=== PATIENT | female | born 1945 | race Caucasian/White ===

== ENCOUNTER → 2017-03-02 | Outpatient (CLI) | payer MEDICARE, OTHER ==
[~2017-03-02] MED LIST: ASP325TEC PO; ATEN25TA PO; CEPH500C PO; CLOP75TA PO; CYCL10TA9 PO; NAPR-243 PO; OMG1KC PO; PRCD5U PO; PRD20T PO; SIMV20TA3 PO
== END ==
LOC: RAD 13:25
PROVIDERS: ATTEND Nurse Practitioner Family
DX: I25.10 Atherosclerotic heart disease of native coronary artery without angina pectoris (principal); I65.23 Occlusion and stenosis of bilateral carotid arteries; E78.4 Other hyperlipidemia; I73.9 Peripheral vascular disease, unspecified
CPT/HCPCS: 93923

== ENCOUNTER → 2017-07-23 | Outpatient (CLI) | payer MEDICARE, OTHER ==
--- NOTE | 2017-07-23 09:00 | Diagnostic Imaging Report ---
PA and lateral views of the chest Indication: Cough and shortness of breath Findings: The lungs are clear. The heart size is at the upper limits of normal. There is no effusion or pneumothorax The mediastinum and kadeem appear unremarkable. Impression: Prominent cardiac size. Dictated by: Dictated on workstation # [id number]
== END ==
LOC: RAD 08:30
DX: R06.02 Shortness of breath (principal); R05 Cough
CPT/HCPCS: 71020

== ENCOUNTER → 2018-09-19 | Outpatient (CLI) | payer MEDICARE, OTHER | LOC: CARD 13:03 | PROVIDERS: ATTEND Nurse Practitioner Family | DX: R06.09 Other forms of dyspnea (principal); I25.10 Atherosclerotic heart disease of native coronary artery without angina pectoris; E78.5 Hyperlipidemia, unspecified; E66.09 Other obesity due to excess calories | CPT/HCPCS: 93306 ==

== ENCOUNTER → 2019-05-08 | Outpatient (CLI) | payer MEDICARE, OTHER ==
[~2019-05-08] MED LIST changes: +CATHETER FLUSH 10 ML SYR IV PRN; +REGADENOSON 0.4 MG/5 ML SYR (LEXISCAN) IV ONE
[2019-05-08 09:23] VITALS: BP 176/100
[2019-05-08 09:25] VITALS: BP 178/105
[2019-05-08 09:26] VITALS: BP 169/94
--- NOTE | 2019-05-09 02:31 | STRESS TEST ---
DATE OF SERVICE: 05/08/2019 RESTING AND POST REGADENOSON TECHNETIUM-99M TETROFOSMIN SPECT CT IMAGING ORDERING PHYSICIAN: Ana Arizmendi APRN PRIMARY CARE PHYSICIAN: Dr. Adame. CLINICAL DIAGNOSES: Coronary artery disease and shortness of breath. Baseline images were carried out after injection of 9.15 mCi technetium-99m Tetrofosmin. This was followed by 0.4 mg regadenoson and 30.7 mCi of technetium-99m Tetrofosmin for stress imaging. The electrocardiogram showed sinus rhythm at baseline and did not change significantly with the regadenoson infusion. The portion noted some shortness of breath following regadenoson infusion, which resolved in a few minutes. Overall, the patient tolerated the procedure well. Review of images at rest and following stress does not indicate any significant perfusion defects consistent with significant myocardial ischemia or infarction. Gated images show normal global left ventricular systolic function and normal regional wall motion. Left ventricular ejection fraction is calculated to be 74%. Left ventricular ejection fraction is calculated to be 74%. TID is absent (1.05). CONCLUSIONS: 1. No evidence of any significant myocardial ischemia or infarction on this study. 2. Normal regional wall motion. 3. Normal global left ventricular systolic function with a calculated ejection fraction of 74%. Job ID: [id number] DocumentID: [id number] Dictated Date: 05/08/2019 21:50:52 Hospital Scientist Date: 05/09/2019 02:30:45 Dictated By: ANGELICA HU MD, MA, FACP, FACC,
== END ==
LOC: CARD 07:07
PROVIDERS: ATTEND Nurse Practitioner Family
DX: I25.10 Atherosclerotic heart disease of native coronary artery without angina pectoris (principal); I65.29 Occlusion and stenosis of unspecified carotid artery; E78.5 Hyperlipidemia, unspecified
CPT/HCPCS: 78452; 93017

== ENCOUNTER → 2020-04-11 | Outpatient (CLI) | payer MEDICARE, OTHER ==
[~2020-04-11] MED LIST changes: -CATHETER FLUSH 10 ML SYR IV PRN; -REGADENOSON 0.4 MG/5 ML SYR (LEXISCAN) IV ONE
--- NOTE | 2020-04-11 10:30 | Diagnostic Imaging Report ---
EXAMINATION: Magnetic resonance imaging of the left knee without intravenous contrast DATE: April 11, 2020. COMPARISON: None. INDICATION: 74-year-old female, left knee pain. TECHNIQUE: Multiplanar, multisequence non contrast enhanced MR imaging was accomplished. FINDINGS: MENISCI: There is an oblique tear involving the body and posterior horn of the medial meniscus. The lateral meniscus is intact. LIGAMENTS AND TENDONS: The anterior and posterior cruciate ligaments are intact. The medial collateral ligament is intact. The iliotibial band, mid third lateral capsular ligament, fibular collateral ligament, biceps femoris tendon and conjoined tendon are intact. The quadriceps tendon and patella ligament are intact. JOINT: There are broad areas of near full-thickness patellar cartilage loss with mild underlying subchondral edema. There is also cartilage loss of the femoral trochlea. There are broad areas of near full-thickness cartilage loss involving the weightbearing portions of the medial femoral condyle and medial tibial plateau with adjacent degenerative related marrow edema. The lateral compartment cartilage appears grossly intact. There is no knee joint effusion, prominent synovitis, or intra-articular body. BONE: There is degenerative related marrow edema as described above. There is no acute fracture, bone contusion, or evidence of osteonecrosis. BURSAE AND SOFT TISSUES: There is no Holt's cyst. There is nonspecific prepatellar subcutaneous edema. There is low level edema in the soleus muscle. There is no fatty muscle atrophy. IMPRESSION: 1. Oblique tear involving the body and posterior horn of the medial meniscus. 2. Intact lateral meniscus. 3. Intact anterior and posterior cruciate ligaments. Additional ligaments and tendons are intact. 4. Severe patellofemoral and medial compartment osteoarthritis. No knee joint effusion, prominent synovitis, or identified intra-articular body. 5. Low level edema in the soleus muscle which may reflect low-grade muscle strain, early denervation related signal changes, and/or myositis. There is no fatty muscle atrophy. The additional intramuscular signal is unremarkable. 6. No acute fracture or evidence of osteonecrosis. Dictated by: Dictated on workstation # [id number]
== END ==
LOC: RAD 08:19
PROVIDERS: ATTEND Nurse Practitioner
DX: S83.242A Other tear of medial meniscus, current injury, left knee, initial encounter (principal); M17.12 Unilateral primary osteoarthritis, left knee
CPT/HCPCS: 73721

== ENCOUNTER 2020-04-29 05:33 | Outpatient (RCR) | payer MEDICARE, OTHER ==
[2020-04-25 14:13] VITALS: BP 158/78
[~2020-04-29] VITALS: Ht 160 cm; Wt 93.2 kg
[~2020-04-29 05:33] MED LIST changes: +ASPI-586 PO; +CLOP75TA69 PO; +MTP25TSR PO; +SIMV20TA26 PO
[2020-05-01] MEDS ORDERED: HYDR-4342 PO (09:50)
== END 2020-04-29 09:50 | disposition home or self-care (01) ==
LOC: PREOP 05:33
PROVIDERS: ATTEND Orthopaedic Surgery
DX: Z01.812 Encounter for preprocedural laboratory examination (principal); M23.204 Derangement of unspecified medial meniscus due to old tear or injury, left knee; Z20.828 Contact with and (suspected) exposure to other viral communicable diseases
CPT/HCPCS: 87081; 87635

== ENCOUNTER 2020-05-01 06:35 | Day surgery (SDC) | payer MEDICARE, OTHER ==
--- NOTE | 2020-04-23 13:57 | HISTORY AND PHYSICAL ---
DATE OF SERVICE: Date of service, surgery, admission will be 05/01/2020 for left knee arthroscopy. This will be for outpatient surgery. HISTORY OF PRESENT ILLNESS: The patient is a 74-year-old female with complaints of progressively worsening left knee pain. The MRI revealed a torn medial meniscus. She also has significant arthritic changes medially and in the patellofemoral joint. The patient does not desire a total knee arthroplasty and elected to proceed with a knee arthroscopy, understanding that this will not cure her arthritic symptoms, but can help with her mechanical symptoms. REVIEW OF SYSTEMS: No chest pain, no shortness of breath, no dysuria. PAST MEDICAL HISTORY: Coronary stents, lupus. PAST SURGICAL HISTORY: Hysterectomy, carpal tunnel, coronary stent placement, heel spur. FAMILY HISTORY: Significant for COPD. PRIMARY CARE PROVIDER: Dr. Adame. MEDICATIONS: Clopidogrel, simvastatin, metoprolol, aspirin, tramadol. ALLERGIES: ZITHROMAX. SOCIAL HISTORY: The patient is a former smoker. Denies alcohol use. PHYSICAL EXAMINATION: GENERAL: The patient is well developed, well-nourished, in no acute distress. HEENT: Normocephalic, atraumatic. Pupils are equal, round and reactive to light. Oropharynx is clear. NECK: Supple, no lymphadenopathy. LUNGS: Clear to auscultation bilaterally. HEART: Regular rate and rhythm. ABDOMEN: Soft, nontender, nondistended. EXTREMITIES: The left knee demonstrates tenderness along the medial joint line. She has large effusion. She has pain medially with Son. There is no varus valgus laxity. Negative anterior and posterior drawer. Range of motion is 0/120. She has patellofemoral crepitus. 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 PLAN: Left knee arthroscopy with chondroplasty. The risks, benefits, options, ramifications and recovery were discussed at length with the patient. She understands and wishes to proceed. Job ID: [id number] DocumentID: [id number] Dictated Date: 04/23/2020 13:48:40 Library Acquisitions Technician Date: 04/23/2020 13:56:17 Dictated By: MARILIN WESTON MD
[2020-05-01] VITALS (10 sets, daily range): BP systolic 112–175; BP diastolic 72–95
[~2020-05-01] VITALS: Ht 160 cm; Wt 93.2 kg
--- OUTSIDE RECORDS SUMMARY | 2020-05-01 06:39 | XMS REPORT ---
Author Author HEROZ film vault supervisor [facility] HEROZ [facility] Address [address] [address] Care Team Providers Care Batter Depositor Name Role Phone ANGELICA HU FACP CCDS Unavailable GIANFRANCO RODERICK Unavailable Unavailable BAICRISTHIAN CARTWRIGHT L BRAKE LINING DRILLER Unavailable Unavailable Migration, Doctor Unavailable Unavailable NANCY DUBOSE APRN Unavailable Unavailable BAICRISTHIAN MACE Unavailable Unavailable REUBEN PARRISH MD Unavailable Unavailable MARGARETTE AUSTIN Unavailable Unavailable Unavailable Unavailable Allergies The data below is from unstructured sourcesNo Known Allergies No Information No Information Medications The data below is from unstructured sourcesNo Known Medications Unknown Medications No Known Medications Unknown Medications Problems Active Problems Problem Normalized Date Last Normalized Normalized Provider Fa cility Classification Problem(s) Recorded Problem Problem Sta tus Duration Coronary Atheroscleroti 04-11-2020 - Chronic Active CRISTHIAN B AIMA [facility] Via atherosclerosi c heart , OSMIN [place] s and other disease of Hospital - heart disease [place] (15 sources.) coronary (25804) artery without angina pectoris Translations: [ CORON ATHEROSCLER NOS TYPE VESSEL, NATIV] Other lower Cough 04-11-2020 - Episodic Active REUBEN CRAWFORD [facility] Via respiratory , MD [place] disease (3 Hospital - sources.) [place] ([address]) Occlusion or Occlusion and 04-11-2020 - Chronic Active HEATHE R BAIMA [facility] Via stenosis of stenosis of , OSMIN [facility] precerebral bilateral Hospital - arteries (8 carotid [place] sources.) arteries (03110) Translations: [ OCCLUSION AND STENOSIS OF UNSPECIFIED CA] Other lower Other forms of 04-11-2020 - Episodic Active HEATHE R BAIMA [facility] Via respiratory dyspnea , OSMIN [place] disease (3 Hospital - sources.) [place] ([address]) Disorders of Other 04-11-2020 - Chronic Active CRISTHIAN REX MA [facility] Via lipid hyperlipidemia , OSMIN [facility] metabolism (12 Translations: Hospital - sources.) [ [place] HYPERLIPIDEMIA (34670) , UNSPECIFIED, HYPERLIPIDEMIA NEC/NOS] Other Other obesity 04-11-2020 - Chronic Active CRISTHIAN BA KIMBERLEY [facility] Via nutritional; due to excess , OSMIN [facility] endocrine; and calories Hospital - metabolic [place] disorders (3 (16274) sources.) Other lower Other Episodic Active CRISTHIAN BAIMA Not Samantha ilable respiratory respiratory (26559) disease (1 abnormalities source.) Peripheral and Peripheral 04-11-2020 - Chronic Active CRISTHIAN BAIMA [facility] Via visceral vascular , OSMIN O[facility]o atherosclerosi disease, Hospital - s (5 sources.) unspecified [place] ([address]) Screening and Personal 04-11-2020 - Episodic Active NANCY ALMARAZ S , [facility] Via history of history of [facility] nicotine Hospital - and substance dependence [place] abuse codes (4 (38977) sources.) Other lower Shortness of 04-11-2020 - Episodic Active REUBEN CHAY OELING [facility] Via respiratory breath , MD [place] disease (3 Hospital - sources.) [place] ([address]) Past or Other Problems Problem Normalized Date Last Normalized Normalized Provider Fa cility Classification Problem(s) Recorded Problem Problem Sta tus Duration Superficial Contusion of Episodic Completed GOOD LISA , DO No t Available injury; hip (71226) contusion (1 source.) Coronary Coronary Chronic Completed ANGELICA HU , Not Availa ble atherosclerosi atherosclerosi [facility] (92540) s and other s of [place] heart disease coronary (2 sources.) artery Translations: [ PERCUTANEOUS TRANSLUM CORON ANGIOPLASTY ] External cause Fall resulting no information no information L ERIC LISA , DO Not Available codes: Fall (1 in striking (98102) source.) against other object Other injuries Hip and thigh Episodic Completed GOOD LISA , DO Not Available and conditions injury (64062) due to external causes (1 source.) External cause Home accidents no information no information L ERICAmanda GONZALEZ , DO Not Available codes: Place (20674) of occurrence (1 source.) External cause Other external no information no information L ERICAmanda GONZALEZ , DO Not Available codes: cause status (42899) Unspecified (1 source.) Procedures The data below is from unstructured sources Procedure Coding System Code Date SINGLE IMMUNIZATION ADMIN CPT-4 04134 Aug 16, 2015 FLUZONE TRIV HIGH DOSE (65 & UP)-SANOFI PASTEUR-2014 CPT-4 01650 Aug 16, 2015 No Known procedures Immunizations The data below is from unstructured sources No Known Immunizations Results The data below is from unstructured sourcesNo Known Results No Results No Results Vital Signs The data below is from unstructured sources Vital Response Date/Time Temperature (Fahrenheit) 99.3 degree s F (97.6 - 99.5) 01/31/2016 8:44pm Temperature (Calculated Celsius) 37. 61520 degrees C (36.4 - 37.5) 01/31/2016 8:44pm Temperature Source Temporal 01/31/2016 8:44pm Pulse Rate (adult) 139 bpm (60 - 90) 01/31/2016 8:44pm Respiratory Rate 18 bpm (12 - 24) 01/31/2016 8:44pm O2 Sat by Pulse Oximetry 96 % (88 - 100) 01/31/2016 8:44pm Blood Pressure 154/89 mm Hg 01/31/2016 8:44pm Blood Pressure Mean 110 mm Hg 01/31/2016 8:44pm Pain Pain Intensity 0 2015 8:44pm Height (Feet) 5 feet 11/2015 8:44pm Height (Inches) 3 inches 01/31/2016 8:44pm Height (Calculated Centimeters) 160. 394998 cm 01/31/2016 8:44pm Weight (Pounds) 185 pounds 01/31/2016 8:44pm Weight (Calculated Kilograms) 83.914 589 kilograms 01/31/2016 8:44pm Height 5 ft 3 in Weight 185 lb Body Mass Index 32.8 kg/m^2 Interventions No Information Plan of Treatment The data below is from unstructured sources Discharge Date 01/31/16 10:43pm Disposition 01 HOME, SELF-CARE Condition at Discharge Improved Instructions/Education Provided [facility] Judge emelina Obstructive Pulmonary Disease (ED) Prescriptions See Medication Section Referrals ANGELICA HU MD FACP FACC CC DS - Primary Care Physician REUBEN PARRISH MD - Primary Care Physician Additional Instructions/Education 1. Continue the Keflex antibiotics 2. Return to ER for any concerns or wors ening difficulty breathing 3. Follow up with Dr Parrish next week 4. All discharge instructions reviewed with patient and/or family. Voiced understanding. Goals No Information Social History No Information Functional Status The data below is from unstructured sourcesNo functional status results. Mental Status No Information Encounters Encounter Normalized Encounter Encounter Diagnosis Care Provi caio Organization Date Type 01-31-2016 Emergency department no information NANCY MARTINEZ (no [facility] - patient visit phone) [facility] 01-31-2016 (no phone) 06-26-2012 Emergency department no information no name no organization name - patient visit 06-26-2012 04-11-2020 Patient encounter no information MARGARETTE SOLORIO (no [facility] procedure phone) [facility] (no phone) 05-08-2019 Patient encounter no information no name no or ganization name procedure 05-08-2019 Patient encounter no information CRISTHIAN L BAIMA AR HOME CARE MANAGER RN [facility] Via [facility] procedure (no phone) [facility] (no phone) 09-19-2018 Patient encounter no information no name no or ganization name procedure 09-19-2018 Patient encounter no information CRISTHIAN L BAIMA AR HOME CARE MANAGER RN [facility] procedure (no phone) [facility] (no phone) 07-23-2017 Patient encounter no information no name no or ganization name procedure 07-23-2017 Patient encounter no information REUBEN Borja [facility] procedure (no phone) [facility] (no phone) 03-02-2017 Patient encounter no information no name no or ganization name procedure 03-02-2017 Patient encounter no information CRISTHIAN L BAIMA AR HOME CARE MANAGER RN [facility] procedure (no phone) [facility] (no phone) 09-03-2014 Patient encounter no information no name no or ganization name procedure 08-18-2012 Patient encounter no information no name no or ganization name procedure Medical Equipment No Information Payers No Information Advance Directives Directive Response Recor ded Date/Time Advance Directives No 8:44pm Health Care Power of Accounting Policy Consultant No 01/31/16 8:44pm Organ Donor No 01/31/16 8:44pm Resuscitation Status Full Code 01/31/16 8:44pm Discharge Instructions No hospital discharge instructions. Summary Purpose eClinicalWorks Submission Additional Source Comments This clinical document has been generated using [employer]Jam software that has been certified by the Office of the National Coordinator for Health Information Technology (ONC 15.99.04.3023.Diam.31.00.0.779464) and the National Committee for Boilermaker Apprentice (NCQA, as an eMeasure certified technology). FOR RECORDS PERTAINING TO PATIENTS WHO ARE OR HAVE BEEN ENROLLED IN A CHEMICAL D EPENDENCY/SUBSTANCE ABUSE PROGRAM, SOME INFORMATION MAY BE OMITTED. This clinica l summary was aggregated from multiple sources. Caution should be exercised in using it in the provision of clinical care. This summary normalizes information from multiple sources, and as a consequence, information in this document may ma terially change the coding, format and clinical context of patient data. In lena tion, data may be omitted in some cases. CLINICAL DECISIONS SHOULD BE BASED ON T HE PRIMARY CLINICAL RECORDS. [facility]. provides no warranty or guara ntee of the accuracy or completeness of information in this document.The followi information is based on time limited clinical information
--- OUTSIDE RECORDS SUMMARY | 2020-05-01 06:39 | XMS REPORT ---
Author Lulu Castillo Organization eClinicalWorks Address Unknown Phone Unavailable Care Team Providers Care Sponge Buffer Name Role Phone RODERICK MEDEL CP Unavailable Allergies No Known Allergies Problems Problem Type Condition Code Onset Dates Condition Statu s Assessment Encounter for immunization Z23 A ctive Medications No Known Medications Procedures Procedure Coding System Code Date SINGLE IMMUNIZATION ADMIN CPT-4 89762 Aug FLUZONE TRIV HIGH DOSE (65 & UP)-SANOFI PASTEUR-2014 CPT-4 92262 Aug 16, 2015 Results No Known Results Immunizations Vaccine Administration Date FLUZONE TRIV HIGH DOSE (65 & UP)-SANOFI PASTEUR-[address] 2014 Summary Purpose eClinicalWorks Submission
--- OUTSIDE RECORDS SUMMARY | 2020-05-01 06:39 | XMS REPORT | Continuity of Care Document ---
Author Organization Unknown Address Unknown Phone Unavailable Allergies Active Description Code Type Severity Reaction Onset Reported/Identified Relationship to Patient Clinical Status Yes azithromycin [id number] Drug Allergy Unknown N/A 02/03/2011 Medications There is no data. 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 03/01/2017 CRISTHIAN GORDON WOOL HAT HYDRAULICKER Ot I25.10 ATHSCL HEART DISEASE OF [place] CORONARY 03/01/2017 CRISTHIAN GORDON L WOOL HAT HYDRAULICKER Ot I25.10 ATHSCL HEART DISEASE OF [place] CORONARY 03/02/2017 Ot 397.0 TRIC USPID VALVE DISEASE 03/02/2017 Ot 414.00 COR ON ATHEROSCLER NOS TYPE VESSEL, NATIV 03/02/2017 Ot 424.0 MITR AL VALVE DISORDER 03/02/2017 Ot 786.09 RES PIRATORY ABNORM NEC 03/02/2017 Ot 414.01 COR ONARY ATHEROSCLEROSIS OF [place] CORON 03/02/2017 Ot V45.82 PER CUTANEOUS TRANSLUM CORON ANGIOPLASTY 03/02/2017 CRISTHIAN GORDON L WOOL HAT HYDRAULICKER Ot 272.4 HYPERLIPIDEMIA NEC/NOS 03/02/2017 CRISTHIAN GORDON L WOOL HAT HYDRAULICKER Ot 414.00 CORON ATHEROSCLER NOS TYPE VESSEL, NATIV 03/02/2017 CRISTHIAN GORDON WOOL HAT HYDRAULICKER Ot 786.09 RESPIRATORY ABNORM NEC 03/02/2017 BAIMA, CRISTHIAN L WOOL HAT HYDRAULICKER Ot I25.10 ATHSCL HEART DISEASE OF [place] CORONARY 03/03/2017 BAIMA, CRISTHIAN L WOOL HAT HYDRAULICKER Ot E78.4 OTHER HYPERLIPIDEMIA 03/03/2017 BAIMA, CRISTHIAN L WOOL HAT HYDRAULICKER Ot I25.10 ATHSCL HEART DISEASE OF [place] CORONARY 03/03/2017 BAIMA, CRISTHIAN L WOOL HAT HYDRAULICKER Ot I65.23 OCCLUSION AND STENOSIS OF BILATERAL [place] 03/03/2017 BAIMA, CRISTHIAN L WOOL HAT HYDRAULICKER Ot I73.9 PERIPHERAL VASCULAR DISEASE, UNSPECIFIED 03/24/2017 BAIMA, CRISTHIAN L WOOL HAT HYDRAULICKER Ot E78.4 OTHER HYPERLIPIDEMIA 03/24/2017 BAIMA, CRISTHIAN L WOOL HAT HYDRAULICKER Ot I25.10 ATHSCL HEART DISEASE OF [place] CORONARY 03/24/2017 BAIMA, CRISTHIAN L WOOL HAT HYDRAULICKER Ot I65.23 OCCLUSION AND STENOSIS OF BILATERAL [place] 03/24/2017 BAIMA, CRISTHIAN L WOOL HAT HYDRAULICKER Ot I73.9 PERIPHERAL VASCULAR DISEASE, UNSPECIFIED 08/13/2017 FRANCOIS KIM, REUBEN Borja Ot R0 5 COUGH 08/13/2017 FRANCOIS KIM, REUBEN Borja Ot R06.02 SHORTNESS OF BREATH 09/19/2018 BAIMA, CRISTHIAN L WOOL HAT HYDRAULICKER Ot 272.4 HYPERLIPIDEMIA NEC/NOS 09/19/2018 BAIMA, CRISTHIAN L WOOL HAT HYDRAULICKER Ot 414.00 CORON ATHEROSCLER NOS TYPE VESSEL, NATIV 09/19/2018 BAIMA, CRISTHIAN L WOOL HAT HYDRAULICKER Ot 786.09 RESPIRATORY ABNORM NEC 09/19/2018 BAIMA, CRISTHIAN L WOOL HAT HYDRAULICKER Ot E78.4 OTHER HYPERLIPIDEMIA 09/19/2018 BAIMA, CRISTHIAN L WOOL HAT HYDRAULICKER Ot I25.10 ATHSCL HEART DISEASE OF [place] CORONARY 09/19/2018 BAIMA, CRISTHIAN L WOOL HAT HYDRAULICKER Ot I65.23 OCCLUSION AND STENOSIS OF BILATERAL [place] 09/19/2018 BAIMA, CRISTHIAN L WOOL HAT HYDRAULICKER Ot I73.9 PERIPHERAL VASCULAR DISEASE, UNSPECIFIED 09/19/2018 FRANCOIS KIM, REUBEN Borja Ot R0 5 COUGH 09/19/2018 FRANCOIS KIM, REUBEN Borja Ot R06.02 SHORTNESS OF BREATH 10/13/2018 BAIMA, CRISTHIAN L WOOL HAT HYDRAULICKER Ot E66.09 OTHER OBESITY DUE TO EXCESS CALORIES 10/13/2018 BAIMA, CRISTHIAN L WOOL HAT HYDRAULICKER Ot E78.5 HYPERLIPIDEMIA, UNSPECIFIED 10/13/2018 BAIMA, CRISTHIAN L WOOL HAT HYDRAULICKER Ot I25.10 ATHSCL HEART DISEASE OF [place] CORONARY 10/13/2018 BAIMA, CRISTHIAN L WOOL HAT HYDRAULICKER Ot R06.09 OTHER FORMS OF DYSPNEA 05/30/2019 BAIMA, CRISTHIAN L WOOL HAT HYDRAULICKER Ot E78.5 HYPERLIPIDEMIA, UNSPECIFIED 05/30/2019 BAIMA, CRISTHIAN L WOOL HAT HYDRAULICKER Ot I25.10 ATHSCL HEART DISEASE OF [place] CORONARY 05/30/2019 BAIMA, CRISTHIAN L WOOL HAT HYDRAULICKER Ot I65.29 OCCLUSION AND STENOSIS OF UNSPECIFIED CA 04/11/2020 BAIMA, CRISTHIAN L WOOL HAT HYDRAULICKER Ot E78.4 OTHER HYPERLIPIDEMIA 04/11/2020 BAIMA, CRISTHIAN L WOOL HAT HYDRAULICKER Ot I25.10 ATHSCL HEART DISEASE OF [place] CORONARY 04/11/2020 BAIMA, CRISTHIAN L WOOL HAT HYDRAULICKER Ot I65.23 OCCLUSION AND STENOSIS OF BILATERAL [place] 04/11/2020 BAIMA, CRISTHIAN L WOOL HAT HYDRAULICKER Ot I73.9 PERIPHERAL VASCULAR DISEASE, UNSPECIFIED 04/11/2020 FRANCOIS KIM, REUBEN D Ot R0 5 COUGH 04/11/2020 FRANCOIS KIM, REUBEN D Ot R06.02 SHORTNESS OF BREATH 04/11/2020 BAIMA, CRISTHIAN L WOOL HAT HYDRAULICKER Ot E66.09 OTHER OBESITY DUE TO EXCESS CALORIES 04/11/2020 BAIMA, CRISTHIAN L WOOL HAT HYDRAULICKER Ot E78.5 HYPERLIPIDEMIA, UNSPECIFIED 04/11/2020 BAIMA, CRISTHIAN L WOOL HAT HYDRAULICKER Ot I25.10 ATHSCL HEART DISEASE OF [place] CORONARY 04/11/2020 BAIMA, CRISTHIAN L WOOL HAT HYDRAULICKER Ot R06.09 OTHER FORMS OF DYSPNEA 04/11/2020 BAIMA, CRISTHIAN L WOOL HAT HYDRAULICKER Ot E78.5 HYPERLIPIDEMIA, UNSPECIFIED 04/11/2020 BAIMA, CRISTHIAN L WOOL HAT HYDRAULICKER Ot I25.10 ATHSCL HEART DISEASE OF [place] CORONARY 04/11/2020 BAIMA, CRISTHIAN L WOOL HAT HYDRAULICKER Ot I65.29 OCCLUSION AND STENOSIS OF UNSPECIFIED CA 04/18/2020 MARGARETTE BARCENAS WOOL HAT HYDRAULICKER Ot M17. 12 UNILATERAL PRIMARY OSTEOARTHRITIS, LEFT 04/18/2020 MARGARETTE BARCENAS WOOL HAT HYDRAULICKER Ot S83.242A OTH TEAR OF MEDIAL MENISCUS, CURRENT INJ Procedures There is no data. Results Test Result Range Methicillin resistant Staphylococcus aur eus (MRSA) screening culture - 04/25/20 13:37 Methicillin resistant Staphylococcus aureus (MRSA) scr eening culture NEG NRG Coronavirus SARS-CoV-2 SO 2018 0 08:10 Coronavirus Ab [Units/volume] in Serum Negative Negative Encounters ACCT No. Visit Date/Time Discharge Status Pt. Type Provider Facility Loc./Unit Complaint [id number] 04/29/2020 05:33:00 020 09:50:00 DIS Outpatient MARILIN WESTON MD [facility] PREOP LEFT MEDIAL MENISCUS T EAR [id number] 04/11/2020 08:19:00 020 23:59:59 CLS Outpatient MARGARETTE BARCENAS WOOL HAT HYDRAULICKER [facility] RAD TEAR OF MEDIAL MENISCUS LEFT KNEE [id number] 05/08/2019 07:07:00 019 23:59:59 CLS Outpatient BAIMA, CRISTHIAN L WOOL HAT HYDRAULICKER [facility] CARD CAD [id number] 09/19/2018 13:03:00 018 23:59:59 CLS Outpatient BAIMA, CRISTHIAN L WOOL HAT HYDRAULICKER [facility] CARD DYSPNEA ON EXER TION [id number] 07/23/2017 08:30:00 017 23:59:59 CLS Outpatient FRANCOIS KIM, REUBEN Borja [facility] RAD R06.02 [id number] 03/02/2017 13:25:00 017 23:59:59 CLS Outpatient BAIMA, CRISTHIAN L WOOL HAT HYDRAULICKER [facility] RAD I25.10 [id number] 09/03/2014 08:37:00 014 23:59:59 CLS Outpatient BAIMA, CRISTHIAN L WOOL HAT HYDRAULICKER [facility] CARD CAD,DYSPNEA [id number] 05/01/2020 08:45:00 P EN Preadmit ENRICO KIM, MARILIN Blair [facility] LEFT MEDIAL MENISCUS TEAR [id number] 01/31/2016 20:34:00 Document Registration [id number] 08/18/2012 06:53:00 Document Registration [id number] 06/26/2012 10:58:00 Document Registration [id number] 02/03/2012 09:13:00 Document Registration
[2020-05-01] MEDS: LACTATED RINGERS 1,000 ML IV PRN ×2 (06:53→08:40)
[2020-05-01] MEDS ORDERED: ceFAZolin INJECTION 1,000 MG in WATER (STERILE) FOR INJECTION 10 ML IV ONE (07:00)
[2020-05-01] MEDS ORDERED: CATHETER FLUSH 10 ML SYR IV PRN (07:15)
[2020-05-01] MEDS ORDERED: LIDOCAINE PF 2% 5 ML (XYLOCAINE) VIAL ONE (07:22)
[2020-05-01] MEDS ORDERED: SEVOFLURANE (ULTANE) 15 ML INHAL SOLN ONE (07:22)
[2020-05-01] MEDS ORDERED: fentaNYL INJECTION 100 MCG/2 ML AMP ONE (07:22)
[2020-05-01] MEDS ORDERED: proPOfol 200 MG/20 ML (DIPRIVAN) VIAL IV ONE (07:22)
[2020-05-01] MEDS ORDERED: ONDANSETRON 4 MG/2 ML (SDV) Z0FRAN ONE (07:22)
[2020-05-01] MEDS ORDERED: HYDROcodone/APAP 7.5 MG/325 MG (LORTAB, LORCET PLUS) TABLET PO PRN (07:30)
--- NOTE | 2020-05-01 07:37 | Progress Note-Pre Operative ---
Pre-Operative Progress Note H&P Reviewed The H&P was reviewed, patient examined and no changes noted. 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
[2020-05-01] MEDS ORDERED: BUPIVACAINE 0.25% 30 ML (SENSORCAINE) VIAL ONE (07:38)
[2020-05-01] MEDS ORDERED: morphine PF (DURAMORPH) 10 MG/10 ML AMP ONE (07:38)
--- NOTE | 2020-05-01 07:38 | Progress Note-Post Operative ---
Post-Operative Progess Note Surgeon (s)/Senior Interactive Producer (s) Surgeon MARILIN WESTON MD Senior Interactive Producer: Rachid Mckee Pre-Operative Diagnosis lef tknee medial meniscus tear and chondromalacia Post-Operative Diagnosis lef tknee medial meniscus tear and chondromalacia of the medial femoral condyle and patella Procedure & Operative Findings Date of Procedure 05/01/20 Procedure Performed/Findings left knee arthroscopic partial medial meniscectomy and chondroplasty of the medial femoral condyle and the patella Anesthesia Type GETA Estimated Blood Loss Estimated blood loss (mL): minimal Specimens/Packing Specimens Removed none Packing: none MARILIN WESTON MD May 01, 2020 07:38
[2020-05-01] MEDS ORDERED: ATROPINE 1.2 MG/3 ML (0.4 MG/ML) SYR ONE (08:39)
[2020-05-01] MEDS ORDERED: ONDANSETRON 4 MG/2 ML (SDV) Z0FRAN IVP PRN (09:15)
[2020-05-01] MEDS ORDERED: morphine INJ 10 MG/ML 1ML (SYR OR VIAL) IVP ONE (09:15)
[2020-05-01] MEDS ORDERED: HYDROmorphone 2 MG/ML VIAL (DILAUDID) IV ONE (09:15)
[2020-05-01] MEDS ORDERED: HYDR-3817 PO (09:50)
--- NOTE | 2020-05-01 10:48 | Physical Therapy Ortho Eval ---
PT Orthopedic Evaluation Type of Surgery Knee Scope (left) Prior Level of Function Current Living Status: Alone (son checks on her as needed) Locomotion (Upon Admit): Independent Established Durable Medical Eq: Front Wheeled Walker Subjective Subjective Agrees to PT. Reports she has a walker at home. Reports her sister will assist as needed and her son will be available as well. Entry Into Home: Stairs With Railing Steps Into Home: 5 Steps Inside Home: 0 Motor Control Motor Control: Motor Control WNL ROM ROM: WFL left knee flexion is "stiff" but functional with transfers and gait. Strength Strength: WFL left quad is weak, requires assist with SLR but able to safely WB and ambulate. Transfer Transfers (B, C, W/C) (FIM): 4 (post eval, pt was mod indep) Gait Gait Assistive Device: FWW Right Lower Extremity: Right Weight Bearing Status RLE: Full Weight Bearing Left Lower Extremity: Left Weight Bearing Status LLE: Weight Bearing/Tolerated Gait (FIM): 4 (post eval, pt was mod indep with gait with FWW) Distance (FIM): 3=150 ft Summary/Comments Safe gait on level surfaces with FWW; pt not putting full weight on LE at this time but verbalizes understanding of WBAT. Stair training with skilled cues for seqeuning. Pt able to perform correctly and demonstrates understanding of sequencing. Safe gait without LOB noted. Treatment Rendered Treatment: Therapeutic Exercises, Gait Train, Step Train Exercise Instruction: Quad Sets, Straight Leg Raise, Heel Slides Reviewed HEP and provided pt with pictures. Pt demonstrated correct performance. Assessment/Goals Goal Time Frame: 1 Visit Understands HEP: Yes Safe Ambulation: Yes Plan Treatment Plan: Discharge PT/Family Agrees to Plan: Yes Time Time In: 1005 Time Out: 1030 Total Billed Treatment Time: 25 Billed Treatment Time visit EVM 25 VINOD HINDS PT May 01, 2020 10:48
--- NOTE | 2020-05-01 13:40 | Anesthesia-General Post-Op ---
General Patient Condition Mental Status/LOC: Same as Preop Cardiovascular: Satisfactory Nausea/Vomiting: Absent Respiratory: Satisfactory Pain: Controlled Complications: Absent Post Op Complications Complications None Follow Up Care/Instructions Patient Instructions None needed. Anesthesia/Patient Condition Patient Condition Patient was seen after the procedure and she was doing well, no complaints, stable vital signs, no apparent adverse anesthesia problems. ELIGIO VALE DO May 01, 2020 13:40
--- NOTE | 2020-05-01 15:27 | OPERATIVE REPORT ---
DATE OF SERVICE: 05/01/2020 PREOPERATIVE DIAGNOSES: 1. Left knee medial meniscus tear. 2. Left knee chondromalacia of the medial femoral condyle. 3. Left knee chondromalacia of the patella. POSTOPERATIVE DIAGNOSES: 1. Left knee medial meniscus tear. 2. Left knee chondromalacia of the medial femoral condyle. 3. Left knee chondromalacia of the patella. PROCEDURES: 1. Left knee arthroscopic partial medial meniscectomy. 2. Left knee arthroscopic chondroplasty medial femoral condyle. 3. Left knee arthroscopic chondroplasty of the patella. SURGEON: Matthieu Weston MD PACKING CLERK: Rachid Mckee, who assisted throughout the procedure and closed the incisions. ANESTHESIA: General endotracheal by Dr. Lentz. TOURNIQUET TIME: ESTIMATED BLOOD LOSS: Minimal. DRAINS: None. COMPLICATIONS: None. POSTOPERATIVE PLAN: Routine arthroscopy protocol. The patient was transferred to the recovery room awake and in stable condition. STATEMENT OF MEDICAL NECESSITY: The patient is a 74-year-old female with complaints of left medial knee pain, catching, locking and swelling. She was tender along her medial joint line. She had pain medially with Son's. Radiographs revealed significant medial joint space and patellofemoral joint space narrowing. The patient was counseled that she had significant arthritis in that this arthroscopy may not provide much relief of her symptoms. The patient did not desire total knee arthroplasty and elected to proceed with a knee arthroscopy to try to provide temporary relief of her symptoms. Examination under anesthesia revealed range of motion of 0/0/130 with negative Kendra, negative anterior and posterior drawer. No varus valgus laxity, negative pivot shift. Arthroscopic findings of patella demonstrated grade II chondral flap centrally in a 10 x 10 area. Trochlea demonstrated grade II chondral softening with no unstable chondral flaps. The medial and lateral gutters were clear. The ACL and PCL were intact. The medial compartment demonstrated grade III chondral flap posteriorly in a 10 x 10 area with grade IV chondral loss posterior to this in a 10 x 10 area. The tibia demonstrated grade IV chondral loss at the posterior horn rim with surrounding grade III chondral loss with no unstable chondral flaps. The posterior horn and body of the medial meniscus demonstrated a complex tear involving approximately one-half of the posterior horn and body. The lateral compartment demonstrated grade II chondral softening of the tibial plateau with no unstable chondral flaps. DESCRIPTION OF PROCEDURE: After risks and benefits of procedure were discussed and questions were answered, an informed consent was signed and placed on chart. The operative site was confirmed and prepped initialed by the surgeon. The patient was then transferred to the operating room. After adequate levels of general endotracheal anesthetic were obtained, a timeout was called, confirming the operative site. Left lower extremity was prepped and draped in the usual sterile fashion. The knee joint was injected with 60 mL of fluid and standard inferolateral portals placed with the arthroscope under direct visualization, inferior medial portal was created. The menisci and cruciates carefully probed with the above findings noted. The unstable chondral flaps on the patella were debrided with shaver back to a stable edge. Scope was redirected into the medial compartment where the unstable chondral flaps in the medial femoral condyle were debrided with shaver back to a stable edge. Posterior horn of the medial meniscus was debrided with a biter and a shaver back to a stable edge. The knee was copiously irrigated. The port sites were closed with 4-0 nylon in subcuticular fashion. Knee was injected with Duramorph. Portal sites were infiltrated with plain Marcaine. A soft dressing was applied and the patient was transferred to the recovery room awake and in stable condition. Job ID: [id number] DocumentID: [id number] Dictated Date: 05/01/2020 08:58:01 Supervisor Type Photography Date: 05/01/2020 15:27:10 Dictated By: MATTHIEU WESTON MD
== END 2020-05-01 11:05 | disposition home or self-care (01) ==
LOC: SDC 06:35
PROVIDERS: ATTEND Orthopaedic Surgery
DX: M23.222 Derangement of posterior horn of medial meniscus due to old tear or injury, left knee (principal); M22.42 Chondromalacia patellae, left knee; M32.9 Systemic lupus erythematosus, unspecified; M06.9 Rheumatoid arthritis, unspecified; E78.5 Hyperlipidemia, unspecified; I10 Essential (primary) hypertension; Z95.5 Presence of coronary angioplasty implant and graft; Z79.82 Long term (current) use of aspirin; Z79.899 Other long term (current) drug therapy; Z87.891 Personal history of nicotine dependence; E66.9 Obesity, unspecified; Z68.36 Body mass index [BMI] 36.0-36.9, adult

== ENCOUNTER → 2021-04-28 | Outpatient (CLI) | payer MEDICARE, OTHER ==
[~2021-04-28] MED LIST changes: +HYDR-3817 PO
== END ==
LOC: CARD 14:00
PROVIDERS: ATTEND Nurse Practitioner Family
DX: R06.09 Other forms of dyspnea (principal)
CPT/HCPCS: 93306

== ENCOUNTER 2022-01-29 05:44 | Outpatient (CLI) | payer MEDICARE, OTHER ==
[~2022-01-29] VITALS: Ht 160 cm; Wt 92.5 kg
[2022-01-29] MEDS ORDERED: HYDR25TA4 PO (13:36)
[2022-01-29] MEDS ORDERED: METF-397 PO (13:36)
[2022-01-29] MEDS ORDERED: METO50TA7 PO (13:36)
[2022-01-29] MEDS ORDERED: ASPI-999 PO (13:36)
== END 2022-01-30 07:01 | disposition home or self-care (01) ==
LOC: PREOP 05:44
PROVIDERS: ATTEND Internal Medicine
DX: Z01.818 Encounter for other preprocedural examination (principal)

== ENCOUNTER 2022-02-06 09:24 | Day surgery (SDC) | payer MEDICARE, OTHER ==
--- NOTE | 2022-01-29 09:56 | HISTORY AND PHYSICAL ---
DATE OF SERVICE: COLONOSCOPY HISTORY AND PHYSICAL HISTORY OF PRESENT ILLNESS: The patient is a 76-year-old white female referred for diagnostic colonoscopy. She reports no previous history of colonoscopy, but was recently noted to be anemic. She reports that was mild anemia, did not know what the number was, but then had positive stool for occult blood. She has not noted melena or bright red blood per rectum. She denies any significant problems with reflux, heartburn, dysphagia or change in weight. She is over 10 years out from 2 cardiac stents for which she has continued to take aspirin and Plavix for 81 mg and 75 mg respectively each day. She is not aware of any family history for colon cancer or GI tract malignancy. PAST MEDICAL HISTORY: Other than coronary artery disease with stent placement over 10 years ago is pertinent for hyperlipidemia, hypertension and insulin resistance. She sees Dr. Boswell as her icer hand. 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 She has had GUILLERMINA for what sounds like severe cervical dysplasia a number of years ago per Dr. Goodrich as well as carpal tunnel replacement. She reports that ovaries were left. This occurred post-. This was noted around the time of . FAMILY HISTORY: As noted in the HPI. REVIEW OF SYSTEMS: CONSTITUTIONAL: Denies night sweats, chills, fever or change in weight. CARDIOVASCULAR: Denies chest discomfort, orthopnea, PND, pedal edema or dyspnea on exertion. PULMONARY: Denies cough, wheezing or shortness of breath. GASTROINTESTINAL: As noted in the HPI. PHYSICAL EXAMINATION: GENERAL: Reveals pleasant white female appeared to be in no acute distress. Evidence for mild pallor. VITAL SIGNS: Heart rate was 70 and regular. Blood pressure 120/82. HEENT: Sclerae were nonicteric. CHEST: Clear to auscultation. CARDIOVASCULAR: Reveals a regular rate and rhythm. Soft 1 to 2/6 systolic ejection murmur heard best at the left lower sternal border without evidence for pulsus, parvus or tardus. No S3 or S4 noted. ABDOMEN: Soft, supple without mass, organomegaly or tenderness. No bruits appreciated. Bowel sounds positive. EXTREMITIES: Reveal no cyanosis, clubbing or edema. ASSESSMENT AND PLAN: The patient is being set up for diagnostic colonoscopy and will undergo EGD to follow if there are no potential bleeding sites noted on colonoscopy considering the patient is taking aspirin and Plavix increasing risk for peptic ulcer disease. The patient will hold aspirin and Plavix one week prior to the procedure. Written instructions were given. Prep instructions with Suprep kit were given and questions were answered. I thank you for the referral of this pleasant lady. Job ID: [id number] DocumentID: [id number] Dictated Date: 01/26/2022 16:21:05 Correspondence Section Supervisor Date: 01/26/2022 18:29:39 Dictated By: DOV PARADA MD
[~2022-02-06] VITALS: Ht 160 cm; Wt 93.0 kg
[~2022-02-06 09:24] MED LIST changes: +ASPI-999 PO; +HYDR25TA4 PO; +METF-397 PO; +METO50TA7 PO
[2022-02-06] MEDS ORDERED: LACTATED RINGERS 1,000 ML IV ONE (09:29)
[2022-02-06] MEDS ORDERED: LACTATED RINGERS 1,000 ML IV STA (09:31)
[2022-02-06 09:40] VITALS: BP 157/70
--- NOTE | 2022-02-06 09:42 | Pre-Op Note & Conscious Sedat ---
Pre-Operative Progress Note H&P Reviewed The H&P was reviewed, patient examined and no changes noted. Date H&P Reviewed: Feb 06, 2022 Time H&P Reviewed: 09:41 Conscious Sedation Pre-Proced ASA Score 3 For ASA 3 and 4: Consider anesthesia and medical clearance. Also, for patients with a history of failed moderate sedation consider anesthesia. Airway Lungs Heart ASA score ASA 1: a normal healthy patient ASA 2: a patient with a mild systemic disease (mid diabetes, controlled hypertension, obesity ASA 3: a patient with a severe systemic disease that limits activity (angina, COPD, prior Myocardial infarction) ASA 4: a patient with an incapacitating disease that is a constant threat to life (CHF, renal failure) ASA 5: a moribund patient not expected to survive 24 hrs. (ruptured aneurysm) ASA 6: a declared brain- patient whose organs are being harvested. For emergent operations, add the letter E after the classification Mallampati Classification Grade 2 Sedation Plan Analgesia, Amnesia, Plan communicated to team members, Discussed options with patient/fam, Discussed risks with patient/fam The patient is an appropriate candidate to undergo the planned procedure, sedation, and anesthesia. The patient immediately re-assessed prior to indication. DOV PARADA MD Feb 06, 2022 09:42
[2022-02-06] MEDS ORDERED: LIDOCAINE JELLY 2% 6 ML SYRINGE MM PRN (09:45)
[2022-02-06] MEDS ORDERED: PROPOFOL INJECTION 50 ML IV ONE (10:34)
[2022-02-06 11:05] VITALS: BP 152/81
[2022-02-06 11:10] VITALS: BP 129/60
[2022-02-06 11:14] VITALS: BP 129/60
[2022-02-06 11:35] VITALS: BP 150/92
--- NOTE | 2022-02-06 12:11 | Anesthesia-General Post-Op ---
MAC Patient Condition Mental Status/LOC: Same as Preop Cardiovascular: Satisfactory Nausea/Vomiting: Absent Respiratory: Satisfactory Pain: Controlled Complications: Absent Post Op Complications Complications None Follow Up Care/Instructions Patient Instructions None needed. Anesthesiology Discharge Order Discharge Order Patient is doing well, no complaints, stable vital signs, no apparent adverse anesthesia problems. No complications reported per nursing. DAKOTA ORTIZ CRNA Feb 06, 2022 12:11
--- NOTE | 2022-02-06 15:27 | OPERATIVE REPORT ---
DATE OF SERVICE: COLONOSCOPY SUMMARY INDICATION FOR THE PROCEDURE: Diagnostic colonoscopy, occult positive blood in the stool and iron deficiency anemia. DESCRIPTION OF PROCEDURE: The patient was placed in the left lateral decubitus position. Prior to undergoing colonoscopy, digital rectal evaluation was performed. Anal sphincter tone was normal and the perianal reflexes intact. The colonoscope was inserted in the rectum and under direct visualization advanced to cecum. The cecum was identified by identification of ileocecal valve and cecal strap. Careful inspection was made as the colonoscope withdrawn. Quality of prep was good. FINDINGS: No evidence for internal or external hemorrhoids and the rectum was unremarkable. Mild to moderate diverticular disease noted in the sigmoid and descending colon was present without evidence for diverticulitis. The splenic flexure, transverse colon, hepatic flexure, ascending colon, and cecum were unremarkable. ASSESSMENT: Mild to moderate diverticular disease was noted in the sigmoid and descending colon without evidence for diverticulitis. This is otherwise normal colonoscopy to the cecum. The patient was advised to continue aspirin therapy and discussed only resuming dual platelet therapy if this is what is recommended by her cost accounting clerk considering that she is quite a few years out from her last cardiac stent and in light of occult positive blood in the stool. We will have her return to discuss setting up future EGD. Job ID: [id number] DocumentID: [id number] Dictated Date: 02/06/2022 11:05:13 Psych Rn Date: 02/06/2022 15:26:26 Dictated By: DOV PARADA MD
== END 2022-02-06 11:48 | disposition home or self-care (01) ==
LOC: ENDO 09:24
PROVIDERS: ATTEND Internal Medicine
DX: K57.30 Diverticulosis of large intestine without perforation or abscess without bleeding (principal); D50.9 Iron deficiency anemia, unspecified; Z79.82 Long term (current) use of aspirin; Z95.5 Presence of coronary angioplasty implant and graft; Z85.828 Personal history of other malignant neoplasm of skin; Z79.02 Long term (current) use of antithrombotics/antiplatelets; E66.9 Obesity, unspecified; Z68.36 Body mass index [BMI] 36.0-36.9, adult

== ENCOUNTER 2022-02-12 07:21 | Outpatient (CLI) | payer MEDICARE, OTHER ==
[~2022-02-12] VITALS: Ht 160 cm; Wt 93.0 kg
== END 2022-02-12 09:12 | disposition home or self-care (01) ==
LOC: PREOP 07:21
PROVIDERS: ATTEND Internal Medicine
DX: Z01.818 Encounter for other preprocedural examination (principal)

== ENCOUNTER 2022-02-20 07:03 | Day surgery (SDC) | payer MEDICARE, OTHER ==
--- NOTE | 2022-02-11 16:27 | HISTORY AND PHYSICAL ---
DATE OF SERVICE: EGD HISTORY AND PHYSICAL HISTORY OF PRESENT ILLNESS: The patient is a 76-year-old white female, who had recent colonoscopy for iron deficiency anemia and occult positive blood in the stool. There were no potential bleeding sites identified. She had mild to moderate diverticular disease noted in the sigmoid and descending colon without evidence for diverticulitis or evidence for neoplasia. She continues to deny melena or bright red blood per rectum. She sometimes would note some dark flecks in the stool. There have been no bowel habit changes and no reported change in weight. She is on aspirin and Plavix, which increased her risk for silent peptic ulcer disease and intermittent bleeding and for this reason, she is being set up for EGD evaluation considering recent negative colonoscopy. PAST MEDICAL HISTORY: She is not aware of any past history for peptic ulcer disease or GI bleeding. She has been on aspirin and Plavix for the past 10 years, which was her last stent placement and sees Dr. Hernandez. PHYSICAL EXAMINATION: GENERAL: Reveals a white female, mild pallor. HEENT:: Otherwise unremarkable. Sclerae nonicteric. VITAL SIGNS: Weight 205 pounds, stable. Blood pressure 140/86. CHEST: Clear to auscultation. CARDIOVASCULAR: Reveals regular rate and rhythm. Soft 1 to 2/6 systolic ejection murmur heard best at right intercostal space without evidence for pulsus, parvus or tardus. No S3 or S4 noted. ABDOMEN: Soft, supple without mass, organomegaly or tenderness. EXTREMITIES: Reveal no cyanosis, clubbing or edema. ASSESSMENT: The patient is being set up next Wednesday for EGD evaluation for iron deficiency anemia and occult positive blood in the stool. She will hold aspirin in the interim, continuing her other medications unchanged. Job ID: [id number] DocumentID: [id number] Dictated Date: 02/11/2022 16:01:26 Net Architect Date: 02/11/2022 16:26:54 Dictated By: DOV PARADA MD
[~2022-02-20] VITALS: Ht 160 cm; Wt 93.0 kg
[2022-02-20] MEDS ORDERED: PROPOFOL INJECTION 50 ML IV ONE (07:21)
--- NOTE | 2022-02-20 07:38 | Pre-Op Note & Conscious Sedat ---
Pre-Operative Progress Note H&P Reviewed The H&P was reviewed, patient examined and no changes noted. Date H&P Reviewed: Feb 20, 2022 Time H&P Reviewed: 07:15 Conscious Sedation Pre-Proced ASA Score 3 For ASA 3 and 4: Consider anesthesia and medical clearance. Also, for patients with a history of failed moderate sedation consider anesthesia. Airway Lungs Heart ASA score ASA 1: a normal healthy patient ASA 2: a patient with a mild systemic disease (mid diabetes, controlled hypertension, obesity ASA 3: a patient with a severe systemic disease that limits activity (angina, COPD, prior Myocardial infarction) ASA 4: a patient with an incapacitating disease that is a constant threat to life (CHF, renal failure) ASA 5: a moribund patient not expected to survive 24 hrs. (ruptured aneurysm) ASA 6: a declared brain- patient whose organs are being harvested. For emergent operations, add the letter E after the classification Mallampati Classification Grade 2 Sedation Plan Analgesia, Amnesia, Plan communicated to team members, Discussed options with patient/fam, Discussed risks with patient/fam The patient is an appropriate candidate to undergo the planned procedure, sedation, and anesthesia. The patient immediately re-assessed prior to indication. DOV PARADA MD Feb 20, 2022 07:38
[2022-02-20] MEDS ORDERED: LACTATED RINGERS 1,000 ML IV STA (07:43)
[2022-02-20] MEDS ORDERED: HURRICAINE EXT TUBE (BENZOCAINE) XX PRN (07:45)
[2022-02-20 07:56] VITALS: BP 110/57
[2022-02-20 07:59] VITALS: BP 158/106
[2022-02-20 08:00] VITALS: BP 113/57
[2022-02-20 08:27] VITALS: BP 149/77
--- NOTE | 2022-02-20 13:10 | OPERATIVE REPORT ---
DATE OF SERVICE: EGD SUMMARY INDICATION FOR THE PROCEDURE: Occult positive blood in the stool, iron deficiency anemia. DESCRIPTION OF PROCEDURE: The patient was placed in the left lateral decubitus position. The endoscope was inserted in the oral cavity and under direct visualization, the esophagus was intubated. The endoscope was passed down the esophagus through stomach and into the second portion of the duodenum. Careful inspection was made as the endoscope was withdrawn. FINDINGS: The oral cavity, posterior pharynx, epiglottis, true and false vocal folds and arytenoid aperture were unremarkable to gross inspection. Proximal, mid and distal esophagus were unremarkable as well. There was a small sliding hiatal hernia present without evidence for erosive esophagitis. The Z-line is distinct and no evidence to suggest Mejia's change was noted. The cardia and fundus of the stomach were unremarkable. There were some linear areas of antral erythema without evidence for erosion, ulceration or evidence for any blood in the upper GI tract. A biopsy was obtained and submitted for histopathology and Helicobacter evaluation. The pylorus, pyloric channel, duodenal bulb, and second portion of duodenum were unremarkable. ASSESSMENT: No potential bleeding sites were identified on today's procedure. The patient does have some mild antral gastritis. Biopsies are pending for histopathology and Helicobacter evaluation. A small hiatal hernia was present without evidence for underlying esophagitis. Job ID: [id number] DocumentID: [id number] Dictated Date: 02/20/2022 07:53:57 Admittance Attendant Date: 02/20/2022 13:09:26 Dictated By: DOV PARADA MD
--- NOTE | 2022-02-20 13:56 | Anesthesia-General Post-Op ---
MAC Patient Condition Mental Status/LOC: Same as Preop Cardiovascular: Satisfactory Nausea/Vomiting: Absent Respiratory: Satisfactory Pain: Controlled Complications: Absent Post Op Complications Complications None Follow Up Care/Instructions Patient Instructions None needed. Anesthesiology Discharge Order Discharge Order Patient is doing well, no complaints, stable vital signs, no apparent adverse anesthesia problems. No complications reported per nursing. JEREMIAH ABBASI CRNA Feb 20, 2022 13:56
== END 2022-02-20 08:44 | disposition home or self-care (01) ==
LOC: ENDO 07:03
PROVIDERS: ATTEND Internal Medicine
DX: K29.60 Other gastritis without bleeding (principal); K31.89 Other diseases of stomach and duodenum; D50.9 Iron deficiency anemia, unspecified; K44.9 Diaphragmatic hernia without obstruction or gangrene; R19.5 Other fecal abnormalities; K57.30 Diverticulosis of large intestine without perforation or abscess without bleeding; Z79.01 Long term (current) use of anticoagulants; Z79.82 Long term (current) use of aspirin
CPT/HCPCS: 88305

== ENCOUNTER 2022-07-07 10:46 | Emergency (ER) | payer MEDICARE, OTHER ==
[~2022-07-07] VITALS: Ht 160 cm; Wt 90.7 kg
[2022-07-07] MEDS ORDERED: TETANUS,DIPTH,PERTUSS P/F (BOOSTRIX) 0.5 ML VIAL IM ONE (11:45)
--- NOTE | 2022-07-07 11:46 | ED Fall/Injury ---
General Chief Complaint: Trauma-Non Activation Stated Complaint: HEAD INJURY, BRUISING Nursing Triage Note: PT AMB TO RM 2. PT STATED THAT SHE MISSED THE BOTTOM STEP AND FELL AND HIT THE RIGHT SIDE OF HER FACE. Source: patient Exam Limitations: no limitations History of Present Illness Date Seen by Provider: Jul 07, 2022 Time Seen by Provider: 11:32 Initial Comments Here with report of fall last night when she missed the bottom step. She states she fell and hit her face on the sidewall and then fell to her knees and twisted her left ankle. Complains of right facial pain, upper neck pain, right head pain, bilateral knee pain and left ankle pain. Denies loss of consciousness. Does report being on blood thinners. Her daughter saw her this morning and was concerned about head injury and wanted her to be seen. Patient agreed. Denies nausea or vomiting. Denies significant pain currently. She was able to walk and with some difficulty to the ED. Occurred: yesterday Severity: mild, moderate Injuries/Pain Location: head, face, neck, lower extremity Context: tripped Loss of Consciousness: no loss of consciousness Associated Symptoms (Fall): No Confusion; Headache, Neck Pain; No Shortness of Air, No Trouble Walking Allergies and Home Medications Allergies Coded Allergies: azithromycin (Unverified Allergy, Unknown, 05/01/20) Patient Home Medication List Home Medication List Reviewed: Yes Aspirin (Aspirin) 81 Mg Tab.chew, 81 MG PO DAILY, (Reported) Entered as Reported by: AMILCAR SAGASTUME on 01/29/22 1336 Clopidogrel Bisulfate (Plavix) 75 Mg Tablet, 75 MG PO DAILY, (Reported) Entered as Reported by: DEEPTI HALEY on 04/25/20 1433 Hydrochlorothiazide (Hydrochlorothiazide) 25 Mg Tablet, 25 MG PO DAILY, (Reported) Entered as Reported by: AMILCAR SAGASTUME on 01/29/22 1336 Metformin HCl (Metformin HCl) 500 Mg Tablet, 500 MG PO DAILY, (Reported) Entered as Reported by: AMILCAR SAGASTUME on 01/29/22 1336 Metoprolol Succinate (Metoprolol Succinate) 50 Mg Tab.er.24h, 50 MG PO HS, (Reported) Entered as Reported by: AMILCAR SAGASTUME on 01/29/22 1336 Simvastatin (Simvastatin) 20 Mg Tablet, 20 MG PO HS, (Reported) Entered as Reported by: DEEPTI HALEY on 04/25/20 1433 Review of Systems Review of Systems Constitutional: No chills, No fever Eyes: No Symptoms Reported Ears, Nose, Mouth, Throat: denies nose discharge, denies epistaxis Respiratory: No cough, No short of breath Musculoskeletal: joint pain, neck pain Skin: change in color, lesions (Abrasion right knee, right hand) Psychiatric/Neurological: Headache All Other Systems Reviewed Negative Unless Noted: Yes Past Lwukhkf-Ozdpza-Gxcrxf Hx Patient Social History Tobacco Use?: No Substance use?: No Alcohol Use?: No Immunizations Up To Date Influenza Vaccine Up-to-Date: No; Not Current First/Initial COVID19 Vaccinat: DECEMBER 2020 Second COVID19 Vaccination Simone: JANUARY 2021 Third COVID19 Vaccination Date: SEPTEMBER 2021 Seasonal Allergies Seasonal Allergies: No Past Medical History Surgeries: Yes ( CARPEL TUNNEL, heel spurs) Coronary Stent, Hysterectomy Respiratory: No Cardiac: Yes (STENTS) High Cholesterol, Hypertension Neurological: No Reproductive Disorders: No [employer]OR History: Hysterectomy, Menopausal Genitourinary: No Gastrointestinal: No Musculoskeletal: Yes (left knee tear) Arthritis Endocrine: No HEENT: Yes (cataract removed) Cancer: No Psychosocial: No Integumentary: No Blood Disorders: No Adverse Reaction/Blood Tranf: No Family Medical History Reviewed Nursing Family Hx No Pertinent Family Hx Physical Exam Vital Signs Vital Signs - First Documented Capillary Refill : Less Than 3 Seconds Height, Weight, BMI Height: 5'3" Weight: 185lbs. oz. 83.651182ak; 35.00 BMI Method:Stated General Appearance: WD/WN, no apparent distress HEENT: PERRL/EOMI, TMs normal, pharynx normal, other (Contusion right cheek and right lateral forehead) Neck: full range of motion, supple, tender midline (Upper C-spine) Cardiovascular: regular rate, rhythm, no murmur Respiratory: lungs clear, normal breath sounds Gastrointestinal: non tender, soft Back: normal inspection, no CVA tenderness, no vertebral tenderness Neurologic/Psychiatric: alert, oriented x 3 Skin: warm/dry, ecchymosis (Right cheek and forehead), other (Small skin tear right radial side wrist dorsal aspect, small abrasion to the right knee) Amara Coma Score Best Eye Response: (4) Open Spontaneously Best Verbal Response: (5) Oriented Best Motor Response: (6) Obeys Commands Progress/Results/Core Measures Results/Orders My Orders Orders - ROSLYN THOMPSON MD Ankle, Left, 3 Views (07/07/22 11:40) Knee, Bilateral, W/[place] 4v. (07/07/22 11:40) Ct Head/Face/Cervical Wo (07/07/22 11:40) Dipht,Pertuss(Acell),Tet Adult (Boostrix (07/07/22 11:45) Medications Given in ED Current Medications Medications Dose Ordered Sig/Mich Route Start Time Stop Time Status Last Admin Dose Admin Diphtheria/ Tetanus/Acell Pertussis 0.5 ml ONCE ONCE IM 07/07/22 11:45 07/07/22 11:46 DC 07/07/22 11:50 0.5 ML Vital Signs/I&O 07/07/22 07/07/22 10:54 10:54 Pulse 88 88 Resp 16 16 B/P (MAP) 157/77 (103) 157/77 (103) Pulse Ox 97 97 O2 Delivery Room Air Room Air Blood Pressure Mean: 103 Progress Progress Note : Progress Note Seen and evaluated. Given patient's history of anticoagulant use, we will go ahead and get CT of the head and have added CT of the neck and face due to injury pattern. We will get x-ray of both knees and the left ankle also due to pain. Tetanus updated due to abrasions. Patient declined pain medicine. Monitor patient. 1250: No acute finding on CT or x-ray as noted on results below. This was discussed with the patient. Discharged home with return precautions. Patient verbalized understanding of instructions and agreement with plan. Diagnostic Imaging Diagonstic Imaging: Xray Plain Films/CT/US/NM/MRI: ankle Comments [facility]. [place], [place] NAME: RONNELL HAY [facility] REC#: [id number] PT STATUS: REG ER : 1945 PHYSICIAN: ROSLYN THOMPSON MD ADMIT DATE: 07/07/22/ER Draft Date of Exam:07/07/22 ANKLE, LEFT, 3 VIEWS INDICATION: Left ankle pain. AP, oblique, and lateral views of the left ankle are obtained. FINDINGS: No fracture or acute bony abnormality is seen. Joint spaces are unremarkable. There is plantar calcaneal spurring. IMPRESSION: Negative left ankle. Dictated on workstation # [id number] Dict: 07/07/22 1228 Trans: 07/07/22 1231 [id number] Interpreted by: ALEX WALLACE MD Electronically signed by: Martha Imaging: Xray Plain Films/CT/US/NM/MRI: facial bones, c-spine, head Comments [facility], [place] NAME: RONNELL HAY [facility] REC#: [id number] PT STATUS: REG ER : 1945 PHYSICIAN: ROSLYN THOMPSON MD ADMIT DATE: 07/07/22/ER Draft Date of Exam:07/07/22 CT HEAD/FACE/CERVICAL WO INDICATION: Trauma, head and neck and facial injuries. TECHNIQUE: Multiple contiguous axial images were obtained through the head, neck, and facial bones without the use of intravenous contrast. Sagittal and coronal reformations through the cervical spine and facial bones were also performed. Auto Exposure Controls were utilized during the CT exam to meet ALARA standards for radiation dose reduction. There is no previous CT for comparison. CT head findings: There were no extra-axial fluid collections. No intracranial hemorrhage. No intracranial mass or mass effect. No midline shift. The ventricles are normal in size and position. There were no focal parenchymal abnormalities in the brain. Calvarial windows are unremarkable. CT cervical spine findings: There was no evidence of cervical spine fracture. There is loss of lordosis which is probably positional. There is mild anterolisthesis of C3 on C4 which is likely degenerative. There is severe disc space narrowing at C5-C6 and C6-C7 with osteophyte formation. There is diffuse facet degenerative change. CT maxillofacial findings: There was no evidence of facial bone fracture. Orbital contents appear unremarkable. The visualized paranasal sinuses show no fluid levels. IMPRESSION: CT head was unremarkable. CT cervical spine shows extensive degenerative change with no acute appearing abnormality. CT maxillofacial demonstrates no facial fracture or sinus fluid levels. Dictated on workstation # [id number] Dict: 07/07/22 1213 Trans: 07/07/22 1222 [id number] Interpreted by: ALEX WALLACE MD Electronically signed by: Diagonstic Imaging: Xray Plain Films/CT/US/NM/MRI: knee Comments [facility]. [place], [place] NAME: RONNELL HAY [facility] REC#: [id number] PT STATUS: REG ER : 1945 PHYSICIAN: ROSLYN THOMPSON MD ADMIT DATE: 07/07/22/ER Draft Date of Exam:07/07/22 KNEE, BILATERAL, W/SUNRISE 4V. INDICATION: Bilateral knee pain post fall. TECHNIQUE: AP, oblique, lateral, and sunrise views of both knees are obtained. FINDINGS: No fracture or acute bony abnormality is seen. There is tricompartmental osteoarthritic change of both knees, most prominent in the medial compartment. There is no overt joint effusion. IMPRESSION: Tricompartmental osteoarthritic change of both knees with no acute abnormality. Dictated on workstation # [id number] Dict: 07/07/22 1229 Trans: 07/07/22 1235 AS [id number] Interpreted by: ALEX WALLACE MD Electronically signed by: Departure Impression Primary Impression: Head injury Qualified Codes: S09.90XA - Unspecified injury of head, initial encounter Additional Impressions: Facial contusion Qualified Codes: S00.83XA - Contusion of other part of head, initial encounter Neck strain Qualified Codes: S16.1XXA - Strain of muscle, fascia and tendon at neck level, initial encounter Bilateral knee pain Qualified Codes: M25.561 - Pain in right knee; M25.562 - Pain in left knee Left ankle sprain Qualified Codes: S93.402A - Sprain of unspecified ligament of left ankle, initial encounter Disposition: 01 HOME, SELF-CARE Condition: Stable Departure-Patient Inst. Decision time for Depature: 12:52 Referrals: REUBEN PARRISH MD (PCP/Family) Primary Care Physician Patient Instructions: Cervical Muscle Strain (DC), Minor Head Injury, Adult ED, Skin Abrasions (DC), Sprain (DC), Contusion (DC) Add. Discharge Instructions: All discharge instructions reviewed with patient and/or family. Voiced understanding. Follow-up with your doctor in a few days for recheck and further evaluation as needed. You may take Tylenol/acetaminophen 1000 mg every 6-8 hours as needed for pain. You may use limited amount of ibuprofen per package directions. You may use ice packs to area of concern 20 minutes/h as needed over the next 1 to 2 days. Return for worse pain, vomiting, vision or balance problems, weakness or other concerns as needed. ROSLYN THOMPSON MD Jul 07, 2022 11:46
--- NOTE | 2022-07-07 12:23 | Diagnostic Imaging Report ---
INDICATION: Trauma, head and neck and facial injuries. TECHNIQUE: Multiple contiguous axial images were obtained through the head, neck, and facial bones without the use of intravenous contrast. Sagittal and coronal reformations through the cervical spine and facial bones were also performed. Auto Exposure Controls were utilized during the CT exam to meet ALARA standards for radiation dose reduction. There is no previous CT for comparison. CT head findings: There were no extra-axial fluid collections. No intracranial hemorrhage. No intracranial mass or mass effect. No midline shift. The ventricles are normal in size and position. There were no focal parenchymal abnormalities in the brain. Calvarial windows are unremarkable. CT cervical spine findings: There was no evidence of cervical spine fracture. There is loss of lordosis which is probably positional. There is mild anterolisthesis of C3 on C4 which is likely degenerative. There is severe disc space narrowing at C5-C6 and C6-C7 with osteophyte formation. There is diffuse facet degenerative change. CT maxillofacial findings: There was no evidence of facial bone fracture. Orbital contents appear unremarkable. The visualized paranasal sinuses show no fluid levels. IMPRESSION: CT head was unremarkable. CT cervical spine shows extensive degenerative change with no acute appearing abnormality. CT maxillofacial demonstrates no facial fracture or sinus fluid levels. Dictated by: Dictated on workstation # [id number]
--- NOTE | 2022-07-07 12:32 | Diagnostic Imaging Report ---
INDICATION: Left ankle pain. AP, oblique, and lateral views of the left ankle are obtained. FINDINGS: No fracture or acute bony abnormality is seen. Joint spaces are unremarkable. There is plantar calcaneal spurring. IMPRESSION: Negative left ankle. Dictated by: Dictated on workstation # [id number]
--- NOTE | 2022-07-07 12:36 | Diagnostic Imaging Report ---
INDICATION: Bilateral knee pain post fall. TECHNIQUE: AP, oblique, lateral, and sunrise views of both knees are obtained. FINDINGS: No fracture or acute bony abnormality is seen. There is tricompartmental osteoarthritic change of both knees, most prominent in the medial compartment. There is no overt joint effusion. IMPRESSION: Tricompartmental osteoarthritic change of both knees with no acute abnormality. Dictated by: Dictated on workstation # [id number]
[2022-07-07 13:09] VITALS: BP 162/88
== END 2022-07-07 13:09 | disposition home or self-care (01) ==
LOC: EDUNIT# 10:46 → ER 10:49
DX: S16.1XXA Strain of muscle, fascia and tendon at neck level, initial encounter (principal); S93.402A Sprain of unspecified ligament of left ankle, initial encounter; S61.511A Laceration without foreign body of right wrist, initial encounter; S09.90XA Unspecified injury of head, initial encounter; S00.83XA Contusion of other part of head, initial encounter; S80.211A Abrasion, right knee, initial encounter; M25.562 Pain in left knee; Z23 Encounter for immunization; W10.9XXA Fall (on) (from) unspecified stairs and steps, initial encounter; W22.01XA Walked into wall, initial encounter
CPT/HCPCS: 70450; 70486; 72125; 73610; 90715

== ENCOUNTER → 2023-05-12 | Outpatient (CLI) | payer MEDICARE, OTHER ==
[~2023-05-12] MED LIST changes: +CLOP-31 PO; -CLOP75TA69 PO
--- NOTE | 2023-05-12 15:00 | Diagnostic Imaging Report ---
INDICATION: COUGH COMPARISON: 07/23/2017 FINDINGS: Frontal and lateral views of the chest demonstrate normal heart size and pulmonary vascularity. The lungs are clear. There are no signs of infiltrate, pleural effusions or pneumothoraces. The visualized osseous structures show no acute abnormalities. IMPRESSION: 1. No acute process. No signs of infiltrates, effusions or pneumothoraces. Dictated by: Dictated on workstation # [id number]
== END ==
LOC: RAD 14:13
PROVIDERS: ATTEND Internal Medicine
DX: R05.8 Other specified cough (principal)
CPT/HCPCS: 71046